=== PATIENT | female | born 1955 | race Caucasian/White ===

== ENCOUNTER → 2019-07-03 13:55 | Outpatient (CLI) | payer BC ==
--- NOTE | 2019-07-06 08:42 | ST ---
PATIENT:RODOLFO MILLER MEDICAL RECORD: [id number] SEX: F LOCATION:[facility] ORDER #: ADMISSION DATE: 07/03/19 AGE OF PATIENT: 63 REFERRING PHYSICIAN: INTERPRETING PHYSICIAN: ERIC JACOBSON MD DATE OF SERVICE: 07/03/2019 PROCEDURE: Treadmill stress test. Baseline ECG is normal. DESCRIPTION OF PROCEDURE: Exercised for 6 minutes on Berry protocol. Maximum heart rate 168 beats per minute, greater than 85% of max predicted. No ECG changes of ischemia. No symptoms of ischemia. Normal blood pressure response to exercise. No arrhythmias noted. Fair exercise tolerance for age. TRANSINT:[id number] Voice Confirmation ID: [id number] DOCUMENT ID: [id number] ERIC JACOBSON MD at 0842 CC: [id number] DICTATION DATE: 07/04/19 1349 PAN WASHER HAND: 07/04/19 1356 DEP CLI 07/03/19 [id number] [place] [address]
--- NOTE | 2019-07-06 08:42 | EC ---
PATIENT:RODOLFO MILLER DATE OF SERVICE: 07/03/19 SEX: F MEDICAL RECORD: [id number] DATE OF : 57 [facility] AGE OF PATIENT: 63 ADMISSION DATE: 07/03/19 REFERRING PHYSICIAN: INTERPRETING PHYSICIAN: ERIC JACOBSON MD ECHOCARDIOGRAM REPORT ECHO CHARGES 4 ECHO COMPLETE Date: 07/03/19 CLINICAL DIAGNOSIS: HEART MURMUR ECHOCARDIOGRAPHIC MEASUREMENTS (adult normal given) AC root (d.<3.7cm) 2.7 cm LV Septum d (<1.2 cm> 1.0 cm Valve Excursion 1.5 cm LV Septum (systole) 1.4 cm Left Atria (s.<4.0cm> 4.0 cm LVPW d(<1.2cm) 1.3 cm RV (d.<2.3cm) 3.4 cm LVPW (sytole) 1.4 cm LV diastole(<5.6CM) 4.1 cm MV E-F(>70mm/sec) cm LV systole 2.3 cm LVOT Diameter 1.8 cm MV exc.(>10mm) 1.6 cm Est.ejection fraction (50-75%) % DOPPLER: LVIT cm/sec A 75.0 cm/sec E 89.0 cm/sec LA cm/sec RVSP 33 mmHg LVOT 102 cm/sec AOP1/2T m/s Asc. Ao 129 cm/sec RVOT 75 cm/sec RA cm/sec PA 109 cm/sec AV Gradient Peak 6.68 mmHg AV Mean 3.21 mmHg AV Area 2.0 cm MV Gradient Peak 6.48 mmHg MV Mean 2.31 mmHg MV Area cm COMMENTS: Bakery Chef: 2 NATANAEL CULLEN Dairy Chemist: 3 Dr. Jovel TAPE# PACS Pericardial Effusion Y DATE OF SERVICE: Adequate 2-D echo, color-flow and spectral Doppler, and M-mode. No LVH. LV internal dimensions are normal. Wall motion is normal. EF is greater than or equal to 55%. Aortic valve is tricuspid. No evidence of stenosis by Doppler interrogation. Left atrium normal at 4.8 cm. Mitral valve shows no prolapse. Mild MR. Right-sided chambers are grossly normal. Mild TR. TRANSINT:[id number] Voice Confirmation ID: [id number] DOCUMENT ID: [id number] ECHOCARDIOGRAM REPORT [id number] RODOLFO MILLER GREGORY A MD at 0842 CC: [id number] DICTATION DATE: 07/04/19 1224 PHARMACY AIDE: 07/04/19 1239 DEP CLI 07/03/19 [id number] [place] [address]
== END | disposition home or self-care (01) ==
LOC: D.HCCARDIO 13:55
PROVIDERS: ATTEND Internal Medicine Interventional Cardiology
DX: R01.1 Cardiac murmur, unspecified (principal); R07.9 Chest pain, unspecified